=== PATIENT | female | born 1960 | race African-American/Black ===

== ENCOUNTER 2017-05-18 10:09 | Emergency (ER) | payer MEDICAID, OTHER ==
[~2017-05-18] VITALS: Ht 167.6 cm; Wt 81.0 kg
[2017-05-18] MEDS ORDERED: SODIUM CHLORIDE 0.9% 1,000 ML IV ONE (10:20)
[2017-05-18 10:43] LABS: BASOPHILS % 1.1 % (0.0-2.0); EOSINOPHILS % 3.4 % (0.0-5.0); HEMATOCRIT. 34.7 % (36.0-48.0); HEMOGLOBIN. 11.3 g/dL (12.0-16.0); LYMPHOCYTES % 31.6 % (20.0-50.0); MEAN CORPUSCULAR HEMOGLOBIN 23.1 pg (28.0-32.0); MEAN CORPUSCULAR VOLUME 70.7 fL (81.0-99.0); MEAN PLATELET VOLUME 8.9 fl (7.4-10.4); MONOCYTES % 11.4 % (2.0-8.0); NEUTROPHILS % 52.5 % (40.0-76.0); PLATELET 217 x1000/uL (130-400); RED BLOOD CELL COUNT 4.91 mill/uL (4.2-5.4); RED CELL DISTRIBUTION WIDTH 16.3 % (11.6-14.6)
[2017-05-18 10:50] LABS: CHLORIDE 107 mEq/L (98-107)
[2017-05-18 11:02] LABS: INR 1.1; PROTHROMBIN TIME 11.1 sec (9.4-11.6)
[2017-05-18 14:37] VITALS: BP 146/91
[2017-05-18] MEDS ORDERED: CLONIDINE 0.1MG TABLET PO ONE (14:45)
== END 2017-05-18 15:38 | disposition home or self-care (01) ==
LOC: ER 10:18
DX: G93.49 Other encephalopathy (principal); R42 Dizziness and giddiness; R53.1 Weakness; I10 Essential (primary) hypertension; E11.9 Type 2 diabetes mellitus without complications; R62.50 Unspecified lack of expected normal physiological development in childhood; H54.7 Unspecified visual loss
CPT/HCPCS: 36415; 70450; 71045; 80053; 80185; 82962; 85025; 85610; 93005; 96360; 99285; J7030

== ENCOUNTER 2019-09-23 09:16 | Inpatient (IN) | payer MEDICAID, OTHER ==
[~2019-09-23] VITALS: Ht 165.1 cm; Wt 83.5 kg
[2019-09-23 09:53] LABS: BASOPHILS % 0.5 % (0.0-2.0); EOSINOPHILS % 0.1 % (0.0-5.0); HEMATOCRIT. 37.4 % (36.0-48.0); HEMOGLOBIN. 12.1 g/dL (12.0-16.0); LYMPHOCYTES % 12.6 % (20.0-50.0); MEAN CORPUSCULAR HEMOGLOBIN 23.5 pg (28.0-32.0); MEAN CORPUSCULAR VOLUME 72.6 fL (81.0-99.0); MEAN PLATELET VOLUME 9.7 fl (7.4-10.4); MONOCYTES % 9.9 % (2.0-8.0); NEUTROPHILS % 76.9 % (40.0-76.0); PLATELET 154 x1000/uL (130-400); RED BLOOD CELL COUNT 5.14 mill/uL (4.2-5.4); RED CELL DISTRIBUTION WIDTH 17.4 % (11.6-14.6)
[2019-09-23 09:58] LABS: CHLORIDE 101 mEq/L (98-107)
[2019-09-23 10:03] LABS: ETHANOL BLOOD < 10 mg/dL
[2019-09-23 11:08] LABS: CLARITY URINE CLEAR (CLEAR); COLOR URINE YELLOW (YELLOW); KETONES URINE NEGATIVE (NEGATIVE); LEUKOCYTE ESTERASE URINE NEGATIVE (NEGATIVE); NITRITE URINE NEGATIVE (NEGATIVE); OCCULT BLOOD URINE TRACE (NEGATIVE); PH URINE 7.5 (4.5-8.0); PROTEIN URINE TRACE (NEGATIVE); UROBILINOGEN URINE 0.2 E.U./dL (0.2-1.0)
[2019-09-23] MEDS ORDERED: HYDRALAZINE 20MG/ML VIAL IV ONE (13:30)
[2019-09-23] MEDS ORDERED: AMLODIPINE 5MG TABLET PO ONE (14:00)
[2019-09-23] MEDS ORDERED: NA PHOS,M-B/NA PHOS,DI-BA ENEMA 118ML PR PRN (15:30)
[2019-09-23] MEDS ORDERED: ONDANSETRON HCL 4MG/2ML INJ IV PRN (15:30)
[2019-09-23] MEDS ORDERED: DEXTROSE 50% WATER 50ML SYRINGE IV PRN (15:30)
[2019-09-23] MEDS ORDERED: ACETAMINOPHEN 325MG TABLET PO PRN (15:30)
[2019-09-23] MEDS ORDERED: IPRATROPIUM/ALBUTEROL 0.5-3(2.5)MG/3ML NEB NEB PRN (15:30)
[2019-09-23] MEDS ORDERED: DIPHENHYDRAMINE 50MG/ML VIAL IV PRN (15:30)
[2019-09-23] MEDS ORDERED: LORAZEPAM 0.5MG TABLET PO PRN (15:30)
[2019-09-23] MEDS ORDERED: ACETAMINOPHEN 650MG SUPP PR PRN (15:30)
[2019-09-23] MEDS ORDERED: DOCUSATE SODIUM 100MG CAPSULE PO PRN (15:30)
[2019-09-23] MEDS ORDERED: HYDROCODONE/ACETAMINOPHEN 5/325MG TABLET PO PRN (15:30)
[2019-09-23] MEDS ORDERED: MAGNESIUM/ALUMINUM HYDROXIDE/SIMETHICONE 30ML UDC PO PRN (15:30)
[2019-09-23] MEDS ORDERED: GUAIFENESIN 200MG/10ML SUGAR FREE UDC PO PRN (15:30)
[2019-09-23 15:45] LABS: *BARBITURATES SCREEN URINE NEGATIVE (NEGATIVE); *BENZODIAZEPINES SCREEN URINE NEGATIVE (NEGATIVE); *COCAINE SCREEN URINE NEGATIVE (NEGATIVE); METHADONE URINE SCREEN NEGATIVE (NEGATIVE)
[2019-09-23 15:46] LABS: CANNABINOID URINE SCREEN NEGATIVE (NEGATIVE); PHENCYCLIDINE URINE SCREEN NEGATIVE (NEGATIVE)
[2019-09-23 15:47] LABS: OPIATES URINE SCREEN NEGATIVE (NEGATIVE)
[2019-09-23 15:52] LABS: *AMPHETAMINES SCREEN URINE NEGATIVE (NEGATIVE)
[2019-09-23] MEDS: SODIUM CHLORIDE 0.9% 1,000 ML IV SCH (16:00)
[2019-09-23] MEDS: INSULIN LISPRO 100 UNITS/ML SUBCUT SCH ×2 (17:00→21:00)
[2019-09-23] MEDS: BLOOD SUGAR DIAGNOSTIC STRIP TEST SCH ×2 (17:21→21:00)
[2019-09-23] MEDS: CLONIDINE 0.1MG TABLET PO PRN (17:26)
[2019-09-23] MEDS: FAMOTIDINE 20MG TABLET PO SCH (21:00)
[2019-09-23] MEDS ORDERED: DIVALPROEX SODIUM 500MG ER TABLET PO SCH (21:00)
[2019-09-23 23:50] LABS: CREATINE KINASE MB FRACTION 4.3 ng/mL (0.5-3.6)
[2019-09-24] VITALS: BP 172/62
[2019-09-24] MEDS ORDERED: HYDR12.54 PO (00:37)
[2019-09-24] MEDS ORDERED: NAPR500T7 PO (00:37)
[2019-09-24] MEDS ORDERED: LISI-604 PO (00:50)
[2019-09-24] MEDS ORDERED: METF-815 PO (00:50)
[2019-09-24] MEDS ORDERED: DIVA-75 PO (00:50)
[2019-09-24] MEDS ORDERED: ESCI10TA PO (00:50)
[2019-09-24] MEDS ORDERED: DOCU250C19 PO (00:50)
[2019-09-24] MEDS ORDERED: LUTUDA PO (00:50)
[2019-09-24] MEDS ORDERED: LOSA25TA26 PO (00:50)
[2019-09-24] MEDS ORDERED: METO100T16 PO (00:50)
[2019-09-24] MEDS ORDERED: FERR325T6 PO (00:50)
[2019-09-24] MEDS ORDERED: DIPH25CA83 PO (00:50)
[2019-09-24] MEDS ORDERED: BENZ2TAB7 PO (00:50)
[2019-09-24 04:00] VITALS: BP 152/64
[2019-09-24] MEDS: BLOOD SUGAR DIAGNOSTIC STRIP TEST SCH ×4 (06:02→21:23)
[2019-09-24 07:55] LABS: BASOPHILS % 0.3 % (0.0-2.0); EOSINOPHILS % 0.5 % (0.0-5.0); HEMATOCRIT. 36.5 % (36.0-48.0); HEMOGLOBIN. 11.7 g/dL (12.0-16.0); LYMPHOCYTES % 16.8 % (20.0-50.0); MEAN CORPUSCULAR HEMOGLOBIN 23.4 pg (28.0-32.0); MEAN CORPUSCULAR VOLUME 72.8 fL (81.0-99.0); MEAN PLATELET VOLUME 9.6 fl (7.4-10.4); MONOCYTES % 11.4 % (2.0-8.0); PLATELET 170 x1000/uL (130-400); RED BLOOD CELL COUNT 5.01 mill/uL (4.2-5.4); RED CELL DISTRIBUTION WIDTH 17.5 % (11.6-14.6)
[2019-09-24] MEDS: INSULIN LISPRO 100 UNITS/ML SUBCUT SCH ×4 (08:10→21:00)
[2019-09-24 08:44] LABS: CHLORIDE 106 mEq/L (98-107)
[2019-09-24] MEDS: ASPIRIN 81MG EC TABLET PO SCH (08:46)
[2019-09-24] MEDS: DIVALPROEX SODIUM 500MG DR TABLET PO SCH ×2 (08:46→20:41)
[2019-09-24] MEDS: CLONIDINE 0.1MG TABLET PO PRN (08:47)
[2019-09-24 08:51] LABS: CREATINE KINASE MB FRACTION 3.8 ng/mL (0.5-3.6)
[2019-09-24 08:52] LABS: LDL CHOLESTEROL 75 mg/dL (5-100)
[2019-09-24 08:53] LABS: CREATINE KINASE 341 IU/L (26-192); HDL CHOLESTEROL 65 mg/dL (40-59); T4 FREE 1.59 ng/dL (0.76-1.46)
[2019-09-24] MEDS: AMLODIPINE 10MG TABLET PO SCH (10:19)
[2019-09-24 11:34] LABS: PROTHROMBIN TIME 10.9 sec (9.6-11.0)
[2019-09-24] MEDS: SODIUM CHLORIDE 0.9% 1,000 ML IV SCH (12:00)
[2019-09-24] MEDS ORDERED: POTASSIUM CHLORIDE INJ 40 MEQ in DEXT 5% WATER 250 ML IV SCH (12:00)
[2019-09-24 12:04] VITALS: BP 146/48
[2019-09-24 16:08] VITALS: BP 145/50
[2019-09-24] MEDS: CITALOPRAM HYDROBROMIDE 10MG TABLET PO SCH (16:34)
[2019-09-24 16:54] LABS: BG BASE EXCESS 2.9 mmol/L (-2.0-2.0); BG CARBOXYHEMOGLOBIN 0.5 % (0.5-1.5); BG DEOXYHEMOGLOBIN 2.8 % (0.0-5.0); BG FRACTION INSPIRED OXYGEN 21; BG OXYGEN SATURATION 97.2 % (92.0-98.5); BG OXYHEMOGLOBIN 96.7 % (94.0-97.0); BG PCO2 39.7 mmHg (35.0-45.0); BG PH 7.451 (7.350-7.450); BG PO2 89.4 mmHg (75.0-100.0); BG SAMPLE SITE RIGHT RADIAL; BG TOTAL HEMOGLOBIN 12.3 g/dL (12.0-18.0); BG VENT MODE ROOM AIR
[2019-09-24] MEDS: BENZTROPINE MESYLATE 2MG TABLET PO SCH (17:22)
[2019-09-24 20:21] VITALS: BP 147/72
[2019-09-24] MEDS: FAMOTIDINE 20MG TABLET PO SCH (20:41)
[2019-09-24] MEDS: [UNRECOGNIZED DRUG - REMARK] PO SCH (20:55)
[2019-09-24] MEDS ORDERED: ATORVASTATIN CALCIUM 10MG TABLET PO SCH (21:00)
[2019-09-24 23:51] VITALS: BP 159/74
[2019-09-25 06:00] VITALS: BP 194/81
[2019-09-25] MEDS: CLONIDINE 0.1MG TABLET PO PRN ×2 (06:16→20:33)
[2019-09-25] MEDS: BLOOD SUGAR DIAGNOSTIC STRIP TEST SCH ×4 (06:30→20:29)
[2019-09-25] MEDS: INSULIN LISPRO 100 UNITS/ML SUBCUT SCH ×4 (06:30→20:29)
[2019-09-25 07:58] VITALS: BP 129/63
[2019-09-25] MEDS: SODIUM CHLORIDE 0.9% 1,000 ML IV SCH (08:48)
[2019-09-25 08:50] LABS: BASOPHILS % 1.2 % (0.0-2.0); EOSINOPHILS % 1.9 % (0.0-5.0); HEMATOCRIT. 36.3 % (36.0-48.0); HEMOGLOBIN. 11.8 g/dL (12.0-16.0); LYMPHOCYTES % 20.7 % (20.0-50.0); MEAN CORPUSCULAR HEMOGLOBIN 23.6 pg (28.0-32.0); MEAN CORPUSCULAR VOLUME 72.4 fL (81.0-99.0); MEAN PLATELET VOLUME 9.7 fl (7.4-10.4); MONOCYTES % 10.2 % (2.0-8.0); PLATELET 161 x1000/uL (130-400); RED BLOOD CELL COUNT 5.01 mill/uL (4.2-5.4); RED CELL DISTRIBUTION WIDTH 17.2 % (11.6-14.6)
[2019-09-25 09:02] LABS: CHLORIDE 105 mEq/L (98-107)
[2019-09-25] MEDS: BENZTROPINE MESYLATE 2MG TABLET PO SCH (09:05)
[2019-09-25] MEDS: ASPIRIN 81MG EC TABLET PO SCH (09:05)
[2019-09-25] MEDS: CITALOPRAM HYDROBROMIDE 10MG TABLET PO SCH (09:05)
[2019-09-25] MEDS: AMLODIPINE 10MG TABLET PO SCH (09:05)
[2019-09-25] MEDS: DIVALPROEX SODIUM 500MG DR TABLET PO SCH ×2 (09:05→20:28)
[2019-09-25] MEDS: LOSARTAN POTASSIUM 25 MG TABLET PO SCH ×2 (10:19→10:23)
[2019-09-25 12:00] VITALS: BP 173/69
[2019-09-25] MEDS ORDERED: LOSARTAN POTASSIUM 25 MG TABLET PO NR (14:00)
[2019-09-25 16:00] VITALS: BP 139/70
[2019-09-25 16:42] VITALS: BP 139/70
[2019-09-25 20:00] VITALS: BP 216/84
[2019-09-25] MEDS: FAMOTIDINE 20MG TABLET PO SCH (20:28)
[2019-09-25] MEDS: ATORVASTATIN CALCIUM 20MG TABLET PO SCH (20:28)
[2019-09-25] MEDS: [UNRECOGNIZED DRUG - REMARK] PO SCH (20:29)
[2019-09-25] MEDS ORDERED: REGADENOSON 0.4 MG/5 ML IV NR (23:00)
[2019-09-26] VITALS: BP 153/78
[2019-09-26 04:00] VITALS: BP 179/84
[2019-09-26] MEDS: SODIUM CHLORIDE 0.9% 1,000 ML IV SCH (04:00)
[2019-09-26] MEDS: INSULIN LISPRO 100 UNITS/ML SUBCUT SCH ×4 (06:52→21:00)
[2019-09-26] MEDS: BLOOD SUGAR DIAGNOSTIC STRIP TEST SCH ×4 (06:52→21:38)
[2019-09-26 08:00] VITALS: BP 196/77
[2019-09-26] MEDS: BENZTROPINE MESYLATE 2MG TABLET PO SCH (09:50)
[2019-09-26] MEDS: LOSARTAN POTASSIUM 25 MG TABLET PO SCH (09:50)
[2019-09-26] MEDS: DIVALPROEX SODIUM 500MG DR TABLET PO SCH ×2 (09:50→21:37)
[2019-09-26] MEDS: ASPIRIN 81MG EC TABLET PO SCH (09:50)
[2019-09-26] MEDS: CITALOPRAM HYDROBROMIDE 10MG TABLET PO SCH (09:50)
[2019-09-26] MEDS: AMLODIPINE 10MG TABLET PO SCH (09:51)
[2019-09-26 12:00] VITALS: BP 180/74
[2019-09-26] MEDS: CLONIDINE 0.1MG TABLET PO PRN (13:14)
[2019-09-26 16:00] VITALS: BP 126/59
[2019-09-26 20:00] VITALS: BP 149/71
[2019-09-26] MEDS ORDERED: ENOXAPARIN 40MG/0.4ML SYR SUBCUT SCH (20:00)
[2019-09-26] MEDS: FAMOTIDINE 20MG TABLET PO SCH (21:37)
[2019-09-26] MEDS: [UNRECOGNIZED DRUG - REMARK] PO SCH (21:38)
[2019-09-26] MEDS: ATORVASTATIN CALCIUM 20MG TABLET PO SCH (21:41)
[2019-09-27] VITALS: BP 159/63
[2019-09-27] MEDS: SODIUM CHLORIDE 0.9% 1,000 ML IV SCH
[2019-09-27 04:00] VITALS: BP 178/76
[2019-09-27] MEDS: INSULIN LISPRO 100 UNITS/ML SUBCUT SCH (06:02)
[2019-09-27] MEDS: BLOOD SUGAR DIAGNOSTIC STRIP TEST SCH (06:02)
[2019-09-27 08:00] VITALS: BP 179/76
[2019-09-27] MEDS: LOSARTAN POTASSIUM 25 MG TABLET PO SCH (08:00)
[2019-09-27] MEDS: DIVALPROEX SODIUM 500MG DR TABLET PO SCH (08:00)
[2019-09-27] MEDS: ASPIRIN 81MG EC TABLET PO SCH (08:00)
[2019-09-27] MEDS: BENZTROPINE MESYLATE 2MG TABLET PO SCH (08:01)
[2019-09-27] MEDS: AMLODIPINE 10MG TABLET PO SCH (08:01)
[2019-09-27] MEDS: CITALOPRAM HYDROBROMIDE 10MG TABLET PO SCH (08:01)
[2019-09-27 10:06] VITALS: BP 145/72
== END 2019-09-27 11:30 | disposition home or self-care (01) | DRG 45 ==
LOC: ER 09:16 → 5WST 13:18 → SUPCPDRO 13:22 → EDBEDREQ 13:26 → EDBEDREQTM 13:26 → ENRESERV 14:17 → CANRESERV 14:17 → ENRESERV 14:29 → MICUSO 16:41 → 7WST 22:48 → 5WST 09-25 02:03
PROVIDERS: ADMIT Internal Medicine; ATTEND Internal Medicine
DX: I63.81 Other cerebral infarction due to occlusion or stenosis of small artery (principal); G93.49 Other encephalopathy; E11.65 Type 2 diabetes mellitus with hyperglycemia; F20.9 Schizophrenia, unspecified; D72.810 Lymphocytopenia; E87.1 Hypo-osmolality and hyponatremia; I16.1 Hypertensive emergency; E87.5 Hyperkalemia; J18.9 Pneumonia, unspecified organism; I31.3 Pericardial effusion (noninflammatory); R47.81 Slurred speech; G40.909 Epilepsy, unspecified, not intractable, without status epilepticus; H54.7 Unspecified visual loss; I10 Essential (primary) hypertension; Z79.84 Long term (current) use of oral hypoglycemic drugs; Z79.899 Other long term (current) drug therapy; Z88.8 Allergy status to other drugs, medicaments and biological substances; Z03.818 Encounter for observation for suspected exposure to other biological agents ruled out
CPT/HCPCS: 36415; 36600; 70496; 70498; 70551; 71045; 80048; 80053; 80061; 80165; 80305; 80320; 81003; 82140; 82375; 82550; 82553; 82805; 82962; 83036; 84132; 84439; 84443; 84484; 85025; 87635; 93005; 93306; 93880; 93970; 97162; 99285; J0360; J1650; J3480; J7060; G0480

== ENCOUNTER 2020-03-05 20:32 | Emergency (ER) | payer MEDICAID, OTHER ==
[~2020-03-05] VITALS: Ht 162.6 cm; Wt 70.0 kg
[~2020-03-05 20:32] MED LIST: BENZ2TAB7 PO; DIPH25CA83 PO; DIVA-75 PO; DOCU250C19 PO; ESCI10TA PO; FERR325T6 PO; LUTUDA PO; METF-815 PO
[2020-03-05] MEDS ORDERED: AZITHROMYCIN 500 MG TABLET PO ONE (21:45)
[2020-03-05] MEDS ORDERED: AZIT500T8 MT (22:04)
[2020-03-06 01:27] LABS: HEMATOCRIT. 37.2 % (36.0-48.0); HEMOGLOBIN. 12.1 g/dL (12.0-16.0); MEAN CORPUSCULAR HEMOGLOBIN 22.7 pg (28.0-32.0); MEAN CORPUSCULAR VOLUME 69.5 fL (81.0-99.0); MEAN PLATELET VOLUME 9.1 fl (7.4-10.4); PLATELET 84 x1000/uL (130-400); RED BLOOD CELL COUNT 5.36 mill/uL (4.2-5.4)
[2020-03-06 01:30] LABS: CHLORIDE 87 mEq/L (98-107)
[2020-03-06 05:39] LABS: NUCLEATED RED BLOOD CELLS 1 /100 WBC; PLATELET ESTIMATE DECREASED
[2020-03-06 07:30] VITALS: BP 182/68
== END 2020-03-06 11:28 | disposition home or self-care (01) ==
LOC: ER 20:32
DX: R53.1 Weakness (principal); E11.9 Type 2 diabetes mellitus without complications; I10 Essential (primary) hypertension; R62.50 Unspecified lack of expected normal physiological development in childhood; F17.200 Nicotine dependence, unspecified, uncomplicated; Z88.8 Allergy status to other drugs, medicaments and biological substances; Z79.899 Other long term (current) drug therapy
CPT/HCPCS: 36415; 71045; 80053; 85025; 99284